=== PATIENT | female | born 1995 | race Caucasian/White ===

== ENCOUNTER 2021-05-30 09:10 | Observation (INO) ==
[2021-05-30] MEDS ORDERED: SODIUM CHLORIDE 0.9% 1000ML 2,000 ML IV ONE (10:05)
[2021-05-30] MEDS ORDERED: KETOROLAC TROMETHAMINE 15 MG/ML VIAL IV ONE (10:05)
--- NOTE | 2021-05-30 10:05 | Emergency Department Note ---
Impression & Plan Acute appendicitis, Abdominal pain ED Provider Note NAME: PINKY PLEITEZ AGE: 25 SEX: F : 1995 ARRIVES VIA: Walk-In INFORMANT: Patient ED PROVIDER(S): Angel Perez DO CHIEF COMPLAINT: Right lower quadrant abdominal pain HPI: Patient is a 25-year-old female who presents to the ER for right lower quadrant abdominal pain. She identifies as a he. Is on testosterone. Has not had a menstrual period for several years. Denies any dysuria, urgency, or frequ ency. Pain is locally in the right lower quadrant worse with palpation. Admits to nausea. Did have one episode of vomiting. 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 No cough or runny nose or loss of taste or smell. No other exacerbating or remitting factors. No vaginal bleeding or vaginal discharge. ROS: See above HPI for pertinent positives & negatives. A total of 10 systems reviewed and were otherwise negative. PAST MEDICAL HISTORY:See Below PAST SURGICAL HISTORY:See Below FAMILY HISTORY:See Below SOCIAL HISTORY:See Below HOME MEDICATIONS:See Below ALLERGIES:See Below VITALS:See Below PHYSICAL EXAMINATION: GENERAL: Sitting up in bed, alert, well appearing, well nourished, no distress, non-toxic EYE EXAM: normal conjunctiva. OROPHARYNX: no exudate, no erythema, lips, buccal mucosa, and tongue normal and mucous membranes are moist NECK: supple, no nuchal rigidity, no adenopathy, non-tender LUNGS: Clear to auscultation. Normal chest wall mechanics HEART: no murmurs, S1 normal and S2 normal ABDOMEN: abdomen soft, tender in right lower quadrant, normo-active bowel sounds, no masses, no rebound or guarding. UPPER EXTREMITIES: upper extremities are grossly normal. LOWER EXTREMITIES: No pitting edema. NEURO EXAM: Normal sensorium, cranial nerves II-XII grossly intact, normal speech, no gross weakness of arms, no gross weakness of legs. MEDICAL DECISION MAKING: Patient is a 25-year-old female who presents the ER for right lower quadrant abdominal pain. Patient is acutely tender on palpation. IV was established blood work was obtained. Labs show leukocytosis 23,000. No significant anemia. BMP with a creatinine 1.4. LFTs bilirubin and lipase was unremarkable. UA was clean. was negative. Covid was negative. CT abdomen pelvis confirms acute appendicitis. Patient was given cefoxitin IV fluids and IV Toradol. Patient was updated bedside. Discussed with Jane mitchell and patient was admitted and taken to the OR for acute appendicitis. Triage Nursing notes reviewed. Limited review of prior medical records performed Vital Signs: reviewed and remarkable for Tachy Differential diagnosis: Differential diagnoses includes but is not limited to gastritis, peptic ulcer disease, GERD, gallbladder disease, pancreatitis, small bowel obstruction, acute coronary syndrome, pericarditis, ischemic bowel, irritable bowel disease, irritable bowel syndrome, appendicitis, diverticulitis, malignancy, hernia, urinary tract infection, torsion, /ectopic (if female), perforation, trauma, infectious. ER treatment provided: See below Diagnostics interpreted by me: ECG: none Cardiac Monitoring: An order was placed for continuous cardiac monitoring. The monitor shows a rate of 92 with sinus rhythm. Laboratory studies: As stated above and show below. Imaging studies: CT abdomen pelvis as discussed above Consultation(s): Discussed with general surgery as stated above Procedures: none Critical Care: None Past Med/Surg History Medical History (Updated 05/30/21 @ 16:17 by Angel Perez DO) Diabetes mellitus Hypertension Social History Smoking Status: Never smoker Tobacco Type: Smokeless Tobacco (Dip or Chew) Do You Dip or Chew Tobacco: No; Hx Alcohol Use: Yes Hx Substance Use: No Beliefs That Will Affect Care: None Current Living Situation: Significant Other Feels Safe at Home: Yes Gender Identity: Male Allergies Allergies Allergy/AdvReac Type Severity Reaction Status Date / Time latex Allergy Mild . Verified 05/30/21 10:21 Home Meds Home Medications Medication Instructions Recorded Confirmed amlodipine 5 mg tablet 5 mg PO QAM 05/30/21 05/30/21 diphenhydramine HCl 25 mg tablet 25 mg PO ONCE 05/30/21 05/30/21 (Benadryl Allergy) insulin aspar prt-insulin aspart 0 unit SUBCUT BID 05/30/21 05/30/21 100 unit/mL (70-30) subcutaneous soln (Novolog Mix 70-30 U-100 Insuln) insulin aspart U-100 100 unit/mL 1 sliding scale dose SUBCUT 05/30/21 05/30/21 subcutaneous cartridge (Novolog USEASDIRECTD PenFill U-100 Insulin aspart) lisinopril 20 mg tablet 20 mg PO QAM 05/30/21 05/30/21 rosuvastatin 10 mg tablet 10 mg PO QAM 05/30/21 05/30/21 Results & Data (ED) Vital Signs Vital Signs - 24 hr 05/30/21 09:29 05/30/21 10:05 05/30/21 12:00 Temperature 37.3 C Temperature Source Oral Pulse Rate 135 H Pulse Rate [Apical] Pulse Rate [Right Finger] 116 H Pulse Rhythm Regular Pulse Rhythm [Apical] Pulse Rhythm [Right Finger] Regular Pulse Strength Normal Pulse Strength [Right Finger] Normal Respiratory Rate 20 16 20 Respiratory Effort / Characteristics Non-Labored Spontaneous Non-Labored Spontaneous Non-Labored Spontaneous Respiratory Depth Normal Normal Normal Respiratory Pattern Regular Regular Regular Blood Pressure 140/84 Blood Pressure [Left Arm] 159/93 H 146/82 H Blood Pressure Mean 102 Blood Pressure Mean [Left Arm] 115 103 Blood Pressure Position [Left Arm] Sitting Sitting Pulse Oximetry 99 99 96 Oxygen Delivery Method Room Air Room Air Room Air Oxygen Flow Rate Sepsis Recent Fever Within 48 Hours No Sepsis New/Unexplained Change in Mental Status N/A Sepsis Action Taken by Nursing No Action Required 05/30/21 13:00 05/30/21 13:33 05/30/21 14:17 Temperature 37.7 C H Temperature Source Oral Pulse Rate Pulse Rate [Apical] Pulse Rate [Right Finger] 116 H 114 H 118 H Pulse Rhythm Pulse Rhythm [Apical] Pulse Rhythm [Right Finger] Regular Regular Pulse Strength Pulse Strength [Right Finger] Normal Normal Respiratory Rate 20 20 20 Respiratory Effort / Characteristics Non-Labored Spontaneous Non-Labored Spontaneous Respiratory Depth Normal Normal Respiratory Pattern Regular Regular Blood Pressure Blood Pressure [Left Arm] 139/87 139/87 157/116 H Blood Pressure Mean Blood Pressure Mean [Left Arm] 104 104 129 Blood Pressure Position [Left Arm] Sitting Sitting Pulse Oximetry 99 100 98 Oxygen Delivery Method Room Air Room Air Room Air Oxygen Flow Rate Sepsis Recent Fever Within 48 Hours Sepsis New/Unexplained Change in Mental Status Sepsis Action Taken by Nursing 05/30/21 15:14 05/30/21 15:20 05/30/21 15:30 Temperature 36.2 C L Temperature Source Temporal Artery Scan Pulse Rate Pulse Rate [Apical] 85 79 97 H Pulse Rate [Right Finger] Pulse Rhythm Pulse Rhythm [Apical] Regular Regular Regular Pulse Rhythm [Right Finger] Pulse Strength Pulse Strength [Right Finger] Respiratory Rate 16 12 21 Respiratory Effort / Characteristics Non-Labored Spontaneous Non-Labored Spontaneous Non-Labored Spontaneous Respiratory Depth Normal Normal Normal Respiratory Pattern Regular Regular Regular Blood Pressure Blood Pressure [Left Arm] 101/52 L 83/60 L 103/59 L Blood Pressure Mean Blood Pressure Mean [Left Arm] 68 67 73 Blood Pressure Position [Left Arm] Lying Lying Lying Pulse Oximetry 100 100 100 Oxygen Delivery Method Oxymask Oxymask Oxymask Oxygen Flow Rate 7 7 7 Sepsis Recent Fever Within 48 Hours Sepsis New/Unexplained Change in Mental Status Sepsis Action Taken by Nursing 05/30/21 15:40 05/30/21 15:50 05/30/21 16:00 Temperature Temperature Source Pulse Rate Pulse Rate [Apical] 96 H 96 H 97 H Pulse Rate [Right Finger] Pulse Rhythm Pulse Rhythm [Apical] Regular Regular Regular Pulse Rhythm [Right Finger] Pulse Strength Pulse Strength [Right Finger] Respiratory Rate 14 18 15 Respiratory Effort / Characteristics Non-Labored Spontaneous Non-Labored Spontaneous Non-Labored Spontaneous Respiratory Depth Normal Normal Normal Respiratory Pattern Regular Regular Regular Blood Pressure Blood Pressure [Left Arm] 132/84 131/85 137/85 Blood Pressure Mean Blood Pressure Mean [Left Arm] 100 100 102 Blood Pressure Position [Left Arm] Lying Lying Lying Pulse Oximetry 99 99 99 Oxygen Delivery Method Room Air Room Air Room Air Oxygen Flow Rate Sepsis Recent Fever Within 48 Hours Sepsis New/Unexplained Change in Mental Status Sepsis Action Taken by Nursing 05/30/21 16:10 Temperature Temperature Source Pulse Rate Pulse Rate [Apical] 96 H Pulse Rate [Right Finger] Pulse Rhythm Pulse Rhythm [Apical] Regular Pulse Rhythm [Right Finger] Pulse Strength Pulse Strength [Right Finger] Respiratory Rate 14 Respiratory Effort / Characteristics Non-Labored Spontaneous Respiratory Depth Normal Respiratory Pattern Regular Blood Pressure Blood Pressure [Left Arm] 135/86 Blood Pressure Mean Blood Pressure Mean [Left Arm] 102 Blood Pressure Position [Left Arm] Lying Pulse Oximetry 99 Oxygen Delivery Method Room Air Oxygen Flow Rate Sepsis Recent Fever Within 48 Hours Sepsis New/Unexplained Change in Mental Status Sepsis Action Taken by Nursing Laboratory Data Result diagrams: 05/30/21 10:00 05/30/21 10:00 Lab Results 05/30/21 05/30/21 05/30/21 Range/Units 10:00 10:00 10:20 WBC 23.88 H (4.8-10.8) K/uL RBC 4.67 (4.2-5.4) M/uL Hgb 14.6 (12.0-16.0) g/dL Hct 40.6 (37-47) % MCV 86.9 (80-100) fL MCH 31.3 (25-34) pg MCHC 36.0 (32-36) g/dL RDW Std Deviation 38.5 (36.4-46.3) fL RDW Coeff of Bon[place] 12.1 (11.5-14.5) % Plt Count 357 (130-400) K/uL MPV 9.8 (7.4-10.4) fL Immature Gran % (Auto) 0.3 % Neut % (Auto) 85.2 % Lymph % (Auto) 7.4 % [place] % (Auto) 6.7 % Eos % (Auto) 0.3 % Baso % (Auto) 0.1 % Neut # (Auto) 20.34 H (1.4-6.5) K/uL Lymph # (Auto) 1.76 (1.2-3.4) K/uL [place] # (Auto) 1.61 H (0.11-0.59) K/uL Eos # (Auto) 0.08 (0-0.5) K/uL Baso # (Auto) 0.03 (0-0.2) K/uL Immature Gran # (Auto) 0.06 H (0.00-0.02) K/uL Sodium 138 (136-145) mmol/L Potassium 3.8 (3.5-5.1) mmol/L Chloride 105 (98-107) mmol/L Carbon Dioxide 28 (21-32) mmol/L Anion Gap 5.0 (3-11) BUN 19 H (7-18) mg/dl Creatinine 1.43 H (0.6-1.2) mg/dl Est Cr Clr Drug Dosing 47.2 ml/min Est GFR ( Amer) 58.4 ml/min Est GFR (Non-Af Amer) 50.4 ml/min BUN/Creatinine Ratio 13.1 (10-20) Glucose 65 L (70-99) mg/dl POC Glucose (70-99) mg/dl Calcium 9.8 (8.5-10.1) mg/dl Total Bilirubin 0.6 (0.2-1) mg/dl AST 15 (15-37) U/L ALT 23 (12-78) U/L Alkaline Phosphatase 95 (45-117) U/L Total Protein 8.0 (6.4-8.2) gm/dl Albumin 4.1 (3.4-5.0) gm/dl Globulin 3.9 (2.5-4.0) gm/dl Albumin/Globulin Ratio 1.1 (0.9-2) Lipase 66 L (73-393) U/L Urine Color Yellow Urine Appearance Clear (Clear) Urine pH 6.5 (4.5-7.5) Ur Specific [place] 1.012 (1.000-1.030) Urine Protein 3+ H (Negative) Urine Glucose (UA) Trace H (Negative) Urine Ketones Negative (Negative) Urine Blood Negative (Negative) Urine Nitrite Negative (Negative) Urine Bilirubin Negative (Negative) Urine Urobilinogen Negative (Negative) Ur Leukocyte Esterase Negative (Negative) Urine WBC (Auto) 1-5 (0-5) /hpf Urine RBC (Auto) 0-4 (0-4) /hpf U Hyaline Cast (Auto) 1-5 (0-5) /lpf U Epithel Cells (Auto) 10-20 H (0-5) /lpf Urine Bacteria (Auto) Negative (Negative) POC Ur Test (NEG) COVID-19 Eval Order SARS-CoV-2 (PCR) (Negative) 05/30/21 05/30/21 05/30/21 Range/Units 10:20 12:20 12:20 WBC (4.8-10.8) K/uL RBC (4.2-5.4) M/uL Hgb (12.0-16.0) g/dL Hct (37-47) % MCV (80-100) fL MCH (25-34) pg MCHC (32-36) g/dL RDW Std Deviation (36.4-46.3) fL RDW Coeff of Boni (11.5-14.5) % Plt Count (130-400) K/uL MPV (7.4-10.4) fL Immature Gran % (Auto) % Neut % (Auto) % Lymph % (Auto) % [place] % (Auto) % Eos % (Auto) % Baso % (Auto) % Neut # (Auto) (1.4-6.5) K/uL Lymph # (Auto) (1.2-3.4) K/uL [place] # (Auto) (0.11-0.59) K/uL Eos # (Auto) (0-0.5) K/uL Baso # (Auto) (0-0.2) K/uL Immature Gran # (Auto) (0.00-0.02) K/uL Sodium (136-145) mmol/L Potassium (3.5-5.1) mmol/L Chloride (98-107) mmol/L Carbon Dioxide (21-32) mmol/L Anion Gap (3-11) BUN (7-18) mg/dl Creatinine (0.6-1.2) mg/dl Est Cr Clr Drug Dosing ml/min Est GFR ( Amer) ml/min Est GFR (Non-Af Amer) ml/min BUN/Creatinine Ratio (10-20) Glucose (70-99) mg/dl POC Glucose (70-99) mg/dl Calcium (8.5-10.1) mg/dl Total Bilirubin (0.2-1) mg/dl AST (15-37) U/L ALT (12-78) U/L Alkaline Phosphatase (45-117) U/L Total Protein (6.4-8.2) gm/dl Albumin (3.4-5.0) gm/dl Globulin (2.5-4.0) gm/dl Albumin/Globulin Ratio (0.9-2) Lipase (73-393) U/L Urine Color Urine Appearance (Clear) Urine pH (4.5-7.5) Ur Specific [place] (1.000-1.030) Urine Protein (Negative) Urine Glucose (UA) (Negative) Urine Ketones (Negative) Urine Blood (Negative) Urine Nitrite (Negative) Urine Bilirubin (Negative) Urine Urobilinogen (Negative) Ur Leukocyte Esterase (Negative) Urine WBC (Auto) (0-5) /hpf Urine RBC (Auto) (0-4) /hpf U Hyaline Cast (Auto) (0-5) /lpf U Epithel Cells (Auto) (0-5) /lpf Urine Bacteria (Auto) (Negative) POC Ur Test NEG (NEG) COVID-19 Eval Order Covid19 at [facility] SARS-CoV-2 (PCR) NEGATIVE (Negative) 05/30/21 05/30/21 Range/Units 13:38 15:19 WBC (4.8-10.8) K/uL RBC (4.2-5.4) M/uL Hgb (12.0-16.0) g/dL Hct (37-47) % MCV (80-100) fL MCH (25-34) pg MCHC (32-36) g/dL RDW Std Deviation (36.4-46.3) fL RDW Coeff of Boni (11.5-14.5) % Plt Count (130-400) K/uL MPV (7.4-10.4) fL Immature Gran % (Auto) % Neut % (Auto) % Lymph % (Auto) % [place] % (Auto) % Eos % (Auto) % Baso % (Auto) % Neut # (Auto) (1.4-6.5) K/uL Lymph # (Auto) (1.2-3.4) K/uL [place] # (Auto) (0.11-0.59) K/uL Eos # (Auto) (0-0.5) K/uL Baso # (Auto) (0-0.2) K/uL Immature Gran # (Auto) (0.00-0.02) K/uL Sodium (136-145) mmol/L Potassium (3.5-5.1) mmol/L Chloride (98-107) mmol/L Carbon Dioxide (21-32) mmol/L Anion Gap (3-11) BUN (7-18) mg/dl Creatinine (0.6-1.2) mg/dl Est Cr Clr Drug Dosing ml/min Est GFR ( Amer) ml/min Est GFR (Non-Af Amer) ml/min BUN/Creatinine Ratio (10-20) Glucose (70-99) mg/dl POC Glucose 81 101 H (70-99) mg/dl Calcium (8.5-10.1) mg/dl Total Bilirubin (0.2-1) mg/dl AST (15-37) U/L ALT (12-78) U/L Alkaline Phosphatase (45-117) U/L Total Protein (6.4-8.2) gm/dl Albumin (3.4-5.0) gm/dl Globulin (2.5-4.0) gm/dl Albumin/Globulin Ratio (0.9-2) Lipase (73-393) U/L Urine Color Urine Appearance (Clear) Urine pH (4.5-7.5) Ur Specific [place] (1.000-1.030) Urine Protein (Negative) Urine Glucose (UA) (Negative) Urine Ketones (Negative) Urine Blood (Negative) Urine Nitrite (Negative) Urine Bilirubin (Negative) Urine Urobilinogen (Negative) Ur Leukocyte Esterase (Negative) Urine WBC (Auto) (0-5) /hpf Urine RBC (Auto) (0-4) /hpf U Hyaline Cast (Auto) (0-5) /lpf U Epithel Cells (Auto) (0-5) /lpf Urine Bacteria (Auto) (Negative) POC Ur Test (NEG) COVID-19 Eval Order SARS-CoV-2 (PCR) (Negative) Administered Medications Fentanyl Citrate (Fentanyl Citrate 100 Mcg/2 Ml Vial) 25 mcg IV Q5M PRN PRN Reason: PACU Use Only-Pain Stop: 05/30/21 21:48 Last Admin: 05/30/21 15:48 Dose: 25 mcg Documented by: [id number] Admin: 05/30/21 15:34 Dose: 25 mcg Documented by: [id number] Ondansetron HCl (Ondansetron Inj 2 Mg/Ml 2 Ml Vial) 4 mg IV ONCE PRN PRN Reason: PACU Use Only-Nausea/Vomiting Stop: 05/30/21 21:48 Last Admin: 05/30/21 15:34 Dose: 4 mg Documented by: [id number] Discontinued Medications Bacitracin (Bacitracin Oint 15 Gm Tube) Confirm Administered Dose 45 appln .ROUTE .STK-MED ONE Stop: 05/30/21 12:23 Last Admin: 05/30/21 14:53 Dose: 45 appln Documented by: [id number] Bupivacaine HCl (Bupivacaine 0.5 % 5 Mg/1 Ml Mpf 30ml Vial) Confirm Administered Dose 30 ml .ROUTE .STK-MED ONE Stop: 05/30/21 12:23 Last Admin: 05/30/21 14:55 Dose: 8 ml Documented by: [id number] Sodium Chloride (Nss 1000ml) 2,000 mls @ 999 mls/hr IV .Q2H1M ONE Stop: 05/30/21 12:05 Last Admin: 05/30/21 10:27 Dose: 999 mls/hr Documented by: [id number] Cefoxitin Sodium (Mefoxin) 2,000 mg in 60 mls @ 100 mls/hr IV NOW STA Stop: 05/30/21 12:11 Last Admin: 05/30/21 12:15 Dose: 100 mls/hr Documented by: [id number] Ioversol (Optiray 320 100ml) 94 ml IV ONCE ONE Stop: 05/30/21 10:54 Last Admin: 05/30/21 10:53 Dose: 94 ml Documented by: [id number] Ketorolac Tromethamine (Ketorolac Tromethamine 15 Mg/Ml Vial) 10 mg IV NOW ONE Stop: 05/30/21 10:06 Last Admin: 05/30/21 10:27 Dose: 10 mg Documented by: [id number] Lidocaine HCl (Lidocaine 1% Local 20 Ml Vial) Confirm Administered Dose 20 ml .ROUTE [email or web address]Up ONE Stop: 05/30/21 12:24 Last Admin: 05/30/21 14:56 Dose: 8 ml Documented by: [id number] Imaging Data Radiologist's Impression: Abdomen/Pelvis CT 05/30/21 10:05 CT SCAN OF THE ABDOMEN AND PELVIS WITH IV CONTRAST CLINICAL HISTORY: Right lower quadrant abdominal pain. COMPARISON STUDY: No priors. TECHNIQUE: Following the IV administration of 94 cc of Optiray 320, CT scan of the abdomen and pelvis is performed from the lung bases to the proximal femora. Images are reviewed in the axial, sagittal, and coronal planes. IV contrast was administered without complication. A dose lowering technique was utilized a dhering to the principles of ALARA. CT DOSE: 268.37 mGycm FINDINGS: Lung bases: The heart is normal in size and without pericardial effusion. The lung bases are clear. Liver: The contrast-enhanced liver is normal in size, contour, and attenuation. There is no intrahepatic biliary ductal dilatation. The hepatic veins and portal veins are patent. Gallbladder: Unremarkable. Spleen: Normal in size and attenuation. Pancreas: Unremarkable. Adrenal glands: Unremarkable. Kidneys: The contrast enhanced kidneys are normal in size and without hydronephrosis. The kidneys enhance symmetrically. Abdominal vasculature: The abdominal aorta is normal in course and caliber. Bowel: There is mild colonic fecal retention. No bowel obstruction is seen. Mild wall thickening suggested throughout the colon. The appendix is mildly dilated and fluid-filled, measuring up to 8 mm in diameter. The appendiceal wall is thickened and hyperemic and there is faint periappendiceal inflammation. This is best seen on image #[id number]. Findings are consistent with acute appendicitis. There is trace surrounding fluid. No organized fluid collection is seen to indicate abscess. Peritoneum: There is no intraperitoneal free air or abdominal ascites. Lymphadenopathy: None. Pelvic viscera: The bladder is decompressed and grossly unremarkable. The uterus and adnexa are normal as visualized noting bilateral ovarian follicles. An involuting follicle is suggested on the left. Skeletal structures: No lytic or blastic lesions are seen. IMPRESSION: 1. Findings are consistent with acute appendicitis. 2. There is no evidence of abscess or perforation. 3. There is mild diffuse colonic wall thickening. Correlate clinically for evidence of a nonspecific colitis. ACT 112: Negative or not required by law. Electronically signed by: Clyde Avalos M.D. 05/30/2021 11:20 AM Discharge Plan Visit Data Chief Complaint: Abdominal Pain Stated Complaint: ADOMINAL PAIN, VOMITTING ED Provider: Angel Perez Discharge Problem: Acute appendicitis, Abdominal pain Discharge Instructions Interventions: ED Discharge Assessment Last Done: 05/30/21 13:34
[2021-05-30 10:16] LABS: Hematocrit (blood only) 40.6 % (37-47); Hemoglobin 14.6 g/dL (12.0-16.0); Mean Corpuscular Hemoglobin 31.3 pg (25-34); Mean Corpuscular Volume 86.9 fL (80-100); Mean Platelet Volume 9.8 fL (7.4-10.4); Platelet Count 357 K/uL (130-400); RDW Coefficient of Variation 12.1 % (11.5-14.5); RDW Standard Deviation 38.5 fL (36.4-46.3); Red Blood Count 4.67 M/uL (4.2-5.4); White Blood Count 23.88 K/uL (4.8-10.8)
[2021-05-30 10:39] LABS: Albumin Globulin Ratio 1.1 (0.9-2); Albumin Level 4.1 gm/dl (3.4-5.0); BUN Creatinine Ratio 13.1 (10-20); Bilirubin,Total 0.6 mg/dl (0.2-1); Calcium 9.8 mg/dl (8.5-10.1); Creatinine Clr Calc Pharmacy 47.2 ml/min; Est GFR (African American) 58.4 ml/min; Est GFR (Non-African American) 50.4 ml/min; Globulin 3.9 gm/dl (2.5-4.0); Potassium 3.8 mmol/L (3.5-5.1)
[2021-05-30 10:44] LABS: Basophils # (auto) 0.03 K/uL (0-0.2); Basophils % (auto) 0.1 %; Eosinophils # (auto) 0.08 K/uL (0-0.5); Eosinophils % (auto) 0.3 %; Immature Granulocytes # (auto) 0.06 K/uL (0.00-0.02); Immature Granulocytes % (auto) 0.3 %; Lymphocytes # (auto) 1.76 K/uL (1.2-3.4); Lymphocytes % (auto) 7.4 %; Monocytes # (auto) 1.61 K/uL (0.11-0.59); Monocytes % (auto) 6.7 %; Neutrophils # (auto) 20.34 K/uL (1.4-6.5); Neutrophils % (auto) 85.2 %
[2021-05-30 10:46] LABS: Appearance Urine Clear (Clear); Bacteria Urine Automated Negative (Negative); Bilirubin Urine Negative (Negative); Blood Urine Negative (Negative); Color Urine Yellow; Glucose Urine UA Trace (Negative); Ketones Urine Negative (Negative); Leukocyte Esterase Urine Negative (Negative); Nitrite Urine Negative (Negative); Protein Urine 3+ (Negative); RBC Urine Automated 0-4 /hpf (0-4); Specific Gravity Urine 1.012 (1.000-1.030); Urobilinogen Urine Negative (Negative); pH Urine 6.5 (4.5-7.5)
[2021-05-30] MEDS ORDERED: OPTIRAY 320 100ml IV ONE (10:53)
--- NOTE | 2021-05-30 11:22 | CT Scan Report ---
CT SCAN OF THE ABDOMEN AND PELVIS WITH IV CONTRAST CLINICAL HISTORY: Right lower quadrant abdominal pain. COMPARISON STUDY: No priors. TECHNIQUE: Following the IV administration of 94 cc of Optiray 320, CT scan of the abdomen and pelvi s is performed from the lung bases to the proximal femora. Images are reviewed in the axial, sagittal , and coronal planes. IV contrast was administered without complication. A dose lowering technique wa s utilized adhering to the principles of ALARA. CT DOSE: 268.37 mGycm FINDINGS: Lung bases: The heart is normal in size and without pericardial effusion. The lung bases are clear. Liver: The contrast-enhanced liver is normal in size, contour, and attenuation. There is no intrahepa tic biliary ductal dilatation. The hepatic veins and portal veins are patent. Gallbladder: Unremarkable. Spleen: Normal in size and attenuation. Pancreas: Unremarkable. Adrenal glands: Unremarkable. Kidneys: The contrast enhanced kidneys are normal in size and without hydronephrosis. The kidneys enh ance symmetrically. Abdominal vasculature: The abdominal aorta is normal in course and caliber. Bowel: There is mild colonic fecal retention. No bowel obstruction is seen. Mild wall thickening sugg ested throughout the colon. The appendix is mildly dilated and fluid-filled, measuring up to 8 mm in diameter. The appendiceal wall is thickened and hyperemic and there is faint periappendiceal inflamm ation. This is best seen on image #[id number]. Findings are consistent with acute appendicitis. There is tra ce surrounding fluid. No organized fluid collection is seen to indicate abscess. Peritoneum: There is no intraperitoneal free air or abdominal ascites. Lymphadenopathy: None. Pelvic viscera: The bladder is decompressed and grossly unremarkable. The uterus and adnexa are shayla l as visualized noting bilateral ovarian follicles. An involuting follicle is suggested on the left. Skeletal structures: No lytic or blastic lesions are seen. IMPRESSION: 1. Findings are consistent with acute appendicitis. 2. There is no evidence of abscess or perforation. 3. There is mild diffuse colonic wall thickening. Correlate clinically for evidence of a nonspecific colitis. ACT 112: Negative or not required by law. Electronically signed by: Clyde Avalos M.D. 05/30/2021 11:20 AM
[2021-05-30] MEDS ORDERED: cefOXitin 2,000 MG/60 ML BAG IV STA (11:36)
[2021-05-30] MEDS ORDERED: BUPIVACAINE 0.5 % 5 MG/1 ML MPF 30ML VIAL ONE (12:22)
[2021-05-30] MEDS ORDERED: BACITRACIN OINT 15 GM TUBE ONE (12:22)
[2021-05-30] MEDS ORDERED: LIDOCAINE 1% LOCAL 20 ML VIAL ONE (12:23)
[2021-05-30] MEDS ORDERED: ROCURONIUM BROMIDE 10 MG/ML 5 ML VIAL IV ONE (12:53)
[2021-05-30] MEDS ORDERED: DEXAMETHASONE SOD INJ 4 MG/ML VIAL ONE (12:53)
[2021-05-30] MEDS ORDERED: MIDAZOLAM HCL 1 MG/ML 2ML VIAL ONE (12:53)
[2021-05-30] MEDS ORDERED: ONDANSETRON INJ 2 MG/ML 2 ML VIAL ONE (12:53)
[2021-05-30] MEDS ORDERED: fentaNYL citrate 100 MCG/2 ML VIAL ONE (12:53)
[2021-05-30] MEDS ORDERED: KETOROLAC 30 MG/ML VIAL ONE (12:53)
[2021-05-30] MEDS ORDERED: LIDOCAINE 2% 2 ML VIAL/AMP(20MG/ML) INFIL ONE (12:53)
[2021-05-30] MEDS ORDERED: PROPOFOL IV EMULSION 10 MG/ML 20 ML VIAL IV ONE (12:53)
[2021-05-30] MEDS ORDERED: NEOSTIGMINE METHYLSULFATE 1 MG/ML 10ML VIAL ONE (12:53)
[2021-05-30] MEDS ORDERED: LARYING-O-JET KIT (LTA) ONE (12:53)
[2021-05-30] MEDS ORDERED: GLYCOPYRROLATE 0.2 MG/ML VIAL ONE (12:53)
--- NOTE | 2021-05-30 13:33 | Surgery Consultation ---
Date of Consultation May 30, 2021 Assessment & Plan (1) Acute appendicitis: Present on Admission?: Yes pt is a 25 year-old male who presents to ER with one day history RLQ pain, CT scan finding acute appendicitis, IMP: acute appendicitis, plan, I recommend to do laparoscopic appendectomy, possible open, D/W benefits, risks and alternatives of the surgery, the risks - infection, bleeding, injury other organs, abscess, bowel obstruction, scar, pain, pt understood, he agrees with surgery, I answered all questions, pre-op antibiotic Plan History of Present Illness Reason for Consultation: appendicitis Requesting Physician: Angel Perez MD Attending Physician: Eddi Velez MD History of Present Illness CHIEF COMPLAINT: Right lower quadrant abdominal pain HPI: Patient is a 25-year-old female who presents the ER for right lower quadrant abdominal pain. She identifies as a he. Is on testosterone. Has not had a menstrual period for several years. Denies any dysuria urgency or frequency. Pain is locally in the right lower quadrant worse with palpation. Admits to nausea. Did have one episode of vomiting. 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 No cough or runny nose or loss of taste or smell. No other exacerbating or remitting factors. No vaginal bleeding or vaginal discharge. I ( Eddi Velez MD ) got a call for consult appendicitis, I reviewed pt's H/P, labs, CT scan with pt, ROS: See above HPI for pertinent positives & negatives. A total of 10 systems reviewed and were otherwise negative. PAST MEDICAL HISTORY: See Below PAST SURGICAL HISTORY: See Below FAMILY HISTORY: See Below SOCIAL HISTORY: See Below HOME MEDICATIONS: See Below ALLERGIES: See Below Allergies Allergy/AdvReac Type Severity Reaction Status Date / Time latex Allergy Mild . Verified 05/30/21 10:21 Home Medications Medication Instructions Recorded Confirmed Type amlodipine 5 mg tablet 5 mg PO QAM 05/30/21 05/30/21 History diphenhydramine HCl 25 mg tablet 25 mg PO ONCE 05/30/21 05/30/21 History (Benadryl Allergy) insulin aspar prt-insulin aspart 0 unit SUBCUT BID 05/30/21 05/30/21 History 100 unit/mL (70-30) subcutaneous soln (Novolog Mix 70-30 U-100 Insuln) insulin aspart U-100 100 unit/mL 1 sliding scale dose SUBCUT 05/30/21 05/30/21 History subcutaneous cartridge (Novolog USEASDIRECTD PenFill U-100 Insulin aspart) lisinopril 20 mg tablet 20 mg PO QAM 05/30/21 05/30/21 History rosuvastatin 10 mg tablet 10 mg PO QAM 05/30/21 05/30/21 History Patient History Social History Smoking Status: Never smoker Tobacco Type: Smokeless Tobacco (Dip or Chew) Feels Safe at Home: Yes Gender Identity: Male Physical Exam Constitutional: WD/WN, vitals as above Eyes: PERRL, conjunctivae normal, anicteric sclerae Neck: trachea midline, no thyromegaly Respiratory: normal respiratory effort, lungs clear to auscultation Cardiovascular: RRR, no murmur, no edema Gastrointestinal (Abdomen): soft, tendernesss at RLQ, no rebound pain, no distend, BS + Musculoskeletal: no cyanosis or clubbing, extremities motor strength 5/5 Neurologic: patellar DTR's 2+ bilat, sensation intact Psychiatric: A+Ox3, euthymic affect Results & Data ([facility]) Vital Signs (Past 12 Hours) Vital Signs Temp Pulse Resp BP BP Pulse Ox 05/30/21 10:05 16 159/93 H 99 05/30/21 09:29 37.3 C 135 H 20 140/84 99 Laboratory Results Abnormal lab results 05/30/21 05/30/21 05/30/21 Range/Units 10:00 10:00 10:20 WBC 23.88 H (4.8-10.8) K/uL Neut # (Auto) 20.34 H (1.4-6.5) K/uL Bibb # (Auto) 1.61 H (0.11-0.59) K/uL Immature Gran # (Auto) 0.06 H (0.00-0.02) K/uL BUN 19 H (7-18) mg/dl Creatinine 1.43 H (0.6-1.2) mg/dl Glucose 65 L (70-99) mg/dl Lipase 66 L (73-393) U/L Urine Protein 3+ H (Negative) Urine Glucose (UA) Trace H (Negative) U Epithel Cells (Auto) 10-20 H (0-5) /lpf Diagnostic Findings CT SCAN OF THE ABDOMEN AND PELVIS WITH IV CONTRAST CLINICAL HISTORY: Right lower quadrant abdominal pain. COMPARISON STUDY: No priors. TECHNIQUE: Following the IV administration of 94 cc of Optiray 320, CT scan of the abdomen and pelvis is performed from the lung bases to the proximal femora. Images are reviewed in the axial, sagittal, and coronal planes. IV contrast was administered without complication. A dose lowering technique was utilized adhering to the principles of ALARA. CT DOSE: 268.37 mGycm FINDINGS: Lung bases: The heart is normal in size and without pericardial effusion. The lung bases are clear. Liver: The contrast-enhanced liver is normal in size, contour, and attenuation. There is no intrahepatic biliary ductal dilatation. The hepatic veins and portal veins are patent. Gallbladder: Unremarkable. Spleen: Normal in size and attenuation. Pancreas: Unremarkable. Adrenal glands: Unremarkable. Kidneys: The contrast enhanced kidneys are normal in size and without hydronephrosis. The kidneys enhance symmetrically. Abdominal vasculature: The abdominal aorta is normal in course and caliber. Bowel: There is mild colonic fecal retention. No bowel obstruction is seen. Mild wall thickening suggested throughout the colon. The appendix is mildly dilated and fluid-filled, measuring up to 8 mm in diameter. The appendiceal wall is thickened and hyperemic and there is faint periappendiceal inflammation. This is best seen on image #[id number]. Findings are consistent with acute appendicitis. There is trace surrounding fluid. No organized fluid collection is seen to indicate abscess. Peritoneum: There is no intraperitoneal free air or abdominal ascites. Lymphadenopathy: None. Pelvic viscera: The bladder is decompressed and grossly unremarkable. The uterus and adnexa are normal as visualized noting bilateral ovarian follicles. An involuting follicle is suggested on the left. Skeletal structures: No lytic or blastic lesions are seen. IMPRESSION: 1. Findings are consistent with acute appendicitis. 2. There is no evidence of abscess or perforation. 3. There is mild diffuse colonic wall thickening. Correlate clinically for evidence of a nonspecific colitis.
--- NOTE | 2021-05-30 13:44 | History & Physical Bridge Note ---
Date of Service May 30, 2021 History & Physical Bridge Note I have examined the patient, reviewed the History & Physical and in the interval since the performance of the History & Physical I have noted the following changes of clinical significance: no changes noted
[2021-05-30] MEDS ORDERED: ONDANSETRON INJ 2 MG/ML 2 ML VIAL IV PRN ×2 (13:48→15:06)
[2021-05-30] MEDS ORDERED: HYDROmorphone INJ 1 MG/ML SYRINGE IV PRN (13:48)
[2021-05-30] MEDS ORDERED: ePHEDrine sulfate 50 MG/ML AMP IV PRN (13:48)
[2021-05-30] MEDS ORDERED: ATROPINE SULFATE 0.1 MG/ML 10ML SYR IV PRN (13:48)
--- NOTE | 2021-05-30 13:50 | Anesthesiology Consultation ---
Date of Service May 30, 2021 Assessment & Plan (1) Encounter for pre-operative examination: Chart Review Chart Review: Acceptable Risk for Surgery and Patient NOT seen in Pre Admission Testing Consults Requested none History Surgery Operation Date: 05/30/21 08:15 Proposed Procedures p Laparoscopic Appendectomy - Eddi Velez MD Height/Weight Height: 5 ft 2 in Weight: 53.8 kg Allergies Allergy/AdvReac Type Severity Reaction Status Date / Time latex Allergy Mild . Verified 05/30/21 10:21 Medications Home Medications Medication Instructions Recorded Confirmed Last Taken amlodipine 5 mg tablet 5 mg PO QAM 05/30/21 05/30/21 05/30/21 diphenhydramine HCl 25 mg tablet 25 mg PO ONCE 05/30/21 05/30/21 05/29/21 (Benadryl Allergy) 25 mg insulin aspar prt-insulin aspart 0 unit SUBCUT BID 05/30/21 05/30/21 05/30/21 100 unit/mL (70-30) subcutaneous 40 units soln (Novolog Mix 70-30 U-100 Insuln) insulin aspart U-100 100 unit/mL 1 sliding scale dose SUBCUT 05/30/21 05/30/21 Unknown subcutaneous cartridge (Novolog USEASDIRECTD PenFill U-100 Insulin aspart) lisinopril 20 mg tablet 20 mg PO QAM 05/30/21 05/30/21 05/30/21 rosuvastatin 10 mg tablet 10 mg PO QAM 05/30/21 05/30/21 05/30/21 NPO Date Last Intake of Fluids: 05/30/21 Time Last Intake of Fluids: 06:00 Last Intake of Fluids Comment: 2 sips of soda Date Last Intake of Solids: 05/30/21 Time Last Intake of Solids: 06:00 Last Intake of Solids Comment: caramel candy Past Medical History Medical History (Updated 05/30/21 @ 14:12 by Ankush Miranda MD) Diabetes mellitus Hypertension Exercise / Class Metabolic Activity III < 4 Walking/Shop/Light housework Past Anesthesia History No Hx of Anesthesia Complications and No Family Hx of Anesthesia Complications History of PONV No Hx of PONV and No Hx of Motion Sickness Social History Smoking Status: Never smoker Do You Dip or Chew Tobacco: No Hx Alcohol Use: Yes Hx Substance Use: No Physical Exam Vital Signs Last Vital Signs Temp 37.3 C 05/30/21 09:29 Pulse 114 H 05/30/21 13:33 Resp 20 05/30/21 13:33 BP 139/87 05/30/21 13:33 Pulse Ox 100 05/30/21 13:33 Testing Laboratory Results 05/30/21 10:00 05/30/21 10:00 Urine Color Yellow 05/30/21 10:20 Urine Appearance Clear (Clear) 05/30/21 10:20 Urine pH 6.5 (4.5-7.5) 05/30/21 10:20 Ur Specific [place] 1.012 (1.000-1.030) 05/30/21 10:20 Urine Protein 3+ (Negative) H 05/30/21 10:20 Urine Glucose (UA) Trace (Negative) H 05/30/21 10:20 Urine Ketones Negative (Negative) 05/30/21 10:20 Urine Nitrite Negative (Negative) 05/30/21 10:20 Ur Leukocyte Esterase Negative (Negative) 05/30/21 10:20 Urine WBC (Auto) 1-5 /hpf (0-5) 05/30/21 10:20 Urine RBC (Auto) 0-4 /hpf (0-4) 05/30/21 10:20 U Hyaline Cast (Auto) 1-5 /lpf (0-5) 05/30/21 10:20 U Epithel Cells (Auto) 10-20 /lpf (0-5) H 05/30/21 10:20 Urine Bacteria (Auto) Negative (Negative) 05/30/21 10:20 05/30/21 13:38 POC Glucose 81 05/30/21 10:20 POC Ur Test NEG
--- NOTE | 2021-05-30 15:03 | Post Operative Brief Note ---
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
[2021-05-30] MEDS ORDERED: SUGAMMADEX SODIUM 200 MG/2 ML VIAL IV ONE (15:08)
[2021-05-30] MEDS ORDERED: SUCCINYLCHOLINE 100MG/5ML SYR IV ONE (15:28)
--- NOTE | 2021-05-30 15:32 | Operative Report (OR) ---
DATE OF PROCEDURE: 05/30/2021 PREOPERATIVE DIAGNOSIS: Acute appendicitis. POSTOPERATIVE DIAGNOSIS: Acute appendicitis. OPERATION: Laparoscopic appendectomy. SURGEON: Eddi Velez MD. ANESTHESIA: General. ESTIMATED BLOOD LOSS: About 10 mL. FINDINGS: Acute appendicitis. COMPLICATIONS: None. INDICATIONS FOR THE PROCEDURE: This is a 25-year-old gentleman who presented to ED with a 1-day hist ory of acute right lower quadrant pain. The patient had a CT scan diagnosis of acute appendicitis. I recommended to do laparoscopic appendectomy, possible open. I did talk to the patient about the be nefit, risk, alternate procedure. I indicated the risks may include, but not limited to, such as ble eding, infection, abscess, injury to other organs, pain, scar, bowel obstruction. The patient unders tands. He signed informed consent and I answered all questions. DETAILS OF PROCEDURE: After we identified the patient and verified the procedure, we brought the pat ient to the OR, put the patient in the supine position on the OR table. The patient received SCD on bilateral legs to prevent DVT. Also, patient received 2 grams of Ancef IV for prophylactic antibioti c and the patient received general anesthesia without difficulty. The abdomen was prepped and draped in routine sterile fashion. After timeout, I injected the local anesthesia by using 1% lidocaine mi xed with 0.5% Marcaine just above the umbilicus. Then, I made a small incision just above the umbili cus, opened fascia, opened peritoneum. Under direct vision, put a Aniya trocar in, connected to CO2 to create pneumoperitoneum, flow rate at 6 liters per minute, pressure not more than 14 mmHg. Once we got a nice pneumoperitoneum, we put a camera in, looked around the abdomen. It showed normal finding on the small bowel and large bowel; however, the appendix shows enlarged with inflammation c onfirming the diagnosis of acute appendicitis. Once we confirmed the diagnosis, we put another two 5 mm trocars on the left lower quadrant area. We used the grasper to hold the appendix and used the H armonic to take down the appendiceal; rechecked, no active bleeding. Then, I chose a 45 mm Endo-VICTOR HUGO stapler for transection on the base of the appendix. Rechecked the staple line, intact, no leak, no a ctive bleeding. Then, we removed the appendix through the catch bag. Then, we reinserted the Aniya trocar in, connected to CO2 to create pneumoperitoneum, again looked a round the abdomen, no active bleeding, no leak on the staple line. Then, we removed all trocars unde r direct vision. No active bleeding from the trocar site. Pneumoperitoneum was released, then I edmundo sed the umbilical incision fascial layer by using 0 Vicryl [id number] x2, closed subcutaneous la chiara by using 2-0 Vicryl interruptedly, closed skin by using 4-0 Vicryl continuous running and then we closed another two 5 mm trocar site of skin only by using 4-0 Vicryl. Then, we put the dressing on. The patient tolerated the procedure well. All instrument, needle and sponge counts were correct x___ _ at the end of the case. The specimen was sent to pathology. After the procedure, I did talk to th e patient about the OR finding and the procedure we did, patient understands. Job ID: [id number]
[2021-05-30] MEDS: fentaNYL citrate 100 MCG/2 ML VIAL IV PRN ×2 (15:34→15:48)
--- NOTE | 2021-05-30 16:00 | Anesthesiology Progress Note ---
Date of Service May 30, 2021 Anesthesia Post Procedure Vital Signs Vital Signs: Temp Pulse Pulse Pulse Resp BP BP 05/30/21 15:50 96 H 18 131/85 05/30/21 15:40 96 H 14 132/84 05/30/21 15:30 97 H 21 103/59 L 05/30/21 15:20 79 12 83/60 L 05/30/21 15:14 36.2 C L 85 16 101/52 L 05/30/21 14:17 37.7 C H 118 H 20 157/116 H 05/30/21 13:33 114 H 20 139/87 05/30/21 13:00 116 H 20 139/87 05/30/21 12:00 116 H 20 146/82 H 05/30/21 10:05 16 159/93 H 05/30/21 09:29 37.3 C 135 H 20 140/84 Pulse Ox 05/30/21 15:50 99 05/30/21 15:40 99 05/30/21 15:30 100 05/30/21 15:20 100 05/30/21 15:14 100 05/30/21 14:17 98 05/30/21 13:33 100 05/30/21 13:00 99 05/30/21 12:00 96 05/30/21 10:05 99 05/30/21 09:29 99 Pain Intensity Right Lower Abdomen: Pain Intensity: 5 Transfer of Care Handoff Completed per policy Notes Mental Status: alert / awake / arousable and participated in evaluation Patient Amnestic to Procedure: Yes Nausea / Vomiting: adequately controlled Pain: adequately controlled Airway Patency, RR, SpO2: stable & adequate BP & HR: stable & adequate Hydration State: stable & adequate Anesthetic Complications: no major complications apparent and Pt Satisfied with anesthetic care
[2021-05-30] MEDS ORDERED: ACETAMINOPHEN 325 MG TAB PO PRN (17:25)
[2021-05-30] MEDS ORDERED: HYDROmorphone INJ 0.5 MG/0.5 ML SYR IV PRN (17:25)
[2021-05-30] MEDS: LACTATED RINGER'S 1,000 ML IV SCH (17:39)
[2021-05-30] MEDS: oxyCODONE/ACETAMINOPHEN 5mg/325mg TAB PO PRN ×2 (17:51→23:00)
[2021-05-30] MEDS ORDERED: diphenhydrAMINE Capsule 25 MG CAP PO ONE (18:00)
[2021-05-30] MEDS ORDERED: INSULIN 70% ASPART PROTAMINE/30% ASPART SQ SCH (19:15)
[2021-05-30] MEDS ORDERED: PHARMACY GLYCEMIC MGMT CONSULT PRN (19:54)
[2021-05-30] MEDS ORDERED: COUGH DROP (SUGAR FREE) LOZ 24 LOZ/1 BOX BUCCAL ONE (21:03)
[2021-05-30] MEDS ORDERED: DEXTROSE 50% 50 ML SYRINGE IV PRN (21:45)
[2021-05-30] MEDS ORDERED: GLUCOSE 40% GEL 15 GM TUBE PO PRN (21:45)
[2021-05-30] MEDS ORDERED: CARBOHYDRATES FOR HYPOGLYCEMIA PO PRN (21:45)
[2021-05-30] MEDS ORDERED: GLUCOSE 10 TABS/TUBE PO PRN (21:45)
[2021-05-30] MEDS ORDERED: GLUCAGON FOR INJ 1 MG VIAL IM PRN (21:45)
[2021-05-30] MEDS: INSULIN ASPART 100 UNITS/ML 3 ML PEN SC SCH (23:36)
[2021-05-31] MEDS: INSULIN ASPART 100 UNITS/ML 3 ML PEN SC SCH ×3 (03:34→13:05)
[2021-05-31] MEDS: oxyCODONE/ACETAMINOPHEN 5mg/325mg TAB PO PRN ×3 (04:27→13:04)
[2021-05-31] MEDS: LACTATED RINGER'S 1,000 ML IV SCH (05:16)
[2021-05-31 06:27] LABS: Basophils # (auto) 0.01 K/uL (0-0.2); Basophils % (auto) 0.1 %; Hematocrit (blood only) 37.2 % (37-47); Hemoglobin 13.1 g/dL (12.0-16.0); Immature Granulocytes # (auto) 0.05 K/uL (0.00-0.02); Immature Granulocytes % (auto) 0.3 %; Lymphocytes # (auto) 1.11 K/uL (1.2-3.4); Lymphocytes % (auto) 6.1 %; Mean Corpuscular Hemoglobin 30.7 pg (25-34); Mean Corpuscular Hgb Conc 35.2 g/dL (32-36); Mean Corpuscular Volume 87.1 fL (80-100); Mean Platelet Volume 9.8 fL (7.4-10.4); Monocytes # (auto) 0.78 K/uL (0.11-0.59); Monocytes % (auto) 4.3 %; Neutrophils # (auto) 16.13 K/uL (1.4-6.5); Neutrophils % (auto) 89.2 %; Platelet Count 318 K/uL (130-400); RDW Coefficient of Variation 12.1 % (11.5-14.5); RDW Standard Deviation 38.6 fL (36.4-46.3); Red Blood Count 4.27 M/uL (4.2-5.4); White Blood Count 18.08 K/uL (4.8-10.8)
[2021-05-31] MEDS ORDERED: INSULIN 70% ASPART PROTAMINE/30% ASPART SQ SCH ×2 (07:30→18:45)
[2021-05-31] MEDS ORDERED: INSULIN HUMAN NPH SC SCH ×2 (08:35→16:30)
[2021-05-31 09:00] LABS: Estimated Average Glucose 235 mg/dl; Hemoglobin A1C 9.8 % (4.5-5.6)
[2021-05-31] MEDS ORDERED: ROSUVASTATIN CALCIUM 10 MG TAB PO SCH (09:00)
[2021-05-31] MEDS ORDERED: amLODIPine BESYLATE 5 MG TAB PO SCH (09:00)
[2021-05-31] MEDS ORDERED: lisinopril 20 MG TAB PO SCH (09:00)
--- NOTE | 2021-05-31 10:40 | Discharge Summary ---
Date of Service May 31, 2021 Admission HPI Per Admitting Provider Patient is a 25-year-old female who presents the ER for right lower quadrant abdominal pain. She identifies as a he. Is on testosterone. Has not had a menstrual period for several years. Denies any dysuria urgency or frequency. Pain is locally in the right lower quadrant worse with palpation. Admits to nausea. Did have one episode of vomiting. 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 No cough or runny nose or loss of taste or smell. No other exacerbating or remitting factors. No vaginal bleeding or vaginal discharge. I ( Eddi Velez MD ) got a call for consult appendicitis, I reviewed pt's H/P, labs, CT scan with pt, ROS: See above HPI for pertinent positives & negatives. A total of 10 systems reviewed and were otherwise negative. Principal Diagnosis Acute appendicitis Discharge Exam Constitutional WD/WN, vitals as above Respiratory normal respiratory effort; no respiratory distress, no labored breathing and no retractions Gastrointestinal (Abdomen) Inspection/Auscultation: + abdomen distended (mild) and + abdominal surgical incision (covered with dry intact dressings) Percussion/Palpation: + abdomen tender (at incision sites) and abdomen soft; no guarding and abdomen not rigid Skin no rashes, warm and dry Psychiatric A+Ox3, euthymic affect Discharge Data Allergies Allergy/AdvReac Type Severity Reaction Status Date / Time latex Allergy Mild . Verified 05/30/21 10:21 Consultations 05/30/21 11:36 ED Decision to Admit Stat Procedures Performed Operation Date: 05/30/21 08:15 Actual Procedures p Laparoscopic Appendectomy(Not Applicable) - Eddi Velez MD Ordered Studies 05/30/21 10:05 CT abd pelvis IV con only Stat Hospital Course (1) Acute appendicitis: Patient was taken to operating room for laparoscopic appendectomy by Dr. Velez. Patient found to have acute appendicitis without perforation or abscess. Transferred to medical/surgical floor for postop care. Diet advanced to clear liquids, IV Dilaudid and po Percocet prn pain, IV Cefoxitin for postop antibiotic, antiemetics, activity as tolerated. POD # 1 afebrile, vitals stable, leukcytosis improved but still elevated at 18K. Postop pain controlled with Percocet. Mild abdominal bloating but passing gas. Ambulating and urinating without difficulty. Patient was discharged home on POD # 1 in stable condition. Total Time Total Time Spent Total Time Spent (In Minutes): 20 Total Time Includes: Examination of the Patient, Discharge Planning and Medication Reconciliation Discharge Plan Discharge Items Patient Disposition: Home - Self-Care Reason For Visit: ADOMINAL PAIN, VOMITTING Discharge Diagnosis: acute appendicitis Activity: Per Instructions section Non-emergency contact: Surgeon Call non-emergency contact if: you have any medication questions, your pain is not controlled, your pain is worsening, your pain is concerning for you, you have a fever, your temperature is above 101, your wound has increased redness, your wound has increased drainage and your wound pain has increased Follow-up/Referrals: Claudia Julian MD [Primary Care Provider] - Diet: Regular Addtl Attending Provider Instructions: Post-Surgical ~Discharge Instructions Activity Recommendations: - lifting limitation: (25 pounds for 4 weeks), - exercise/sex/sports limit: (nonstrenuous for 2 weeks), - driving or machine use limit: (none for 1 week or until pain free and no longer taking narcotic pain medication), - Shower/bathe limit: (may shower beginning ) Diet: - Resume previous diet SPECIAL CARE INSTRUCTIONS: - May shower on , sponge bath and wash hair in meantime. On , remove outer dressings and shower.. Let water run over area and pat dry. - Leave steri strips on for one week and then remove. They may fall off on their own that is okay. - Call the surgeon's office with any questions or concerns - - (ex. temperature higher than 101 degrees F, excessive bleeding or pain). MEDICATIONS: - Resume previous medications unless instructed otherwise by your surgeon. - May alternate extra strength Tylenol and Ibuprofen as needed for mild to moderate pain -650 mg of Tylenol very 6 hours as needed - Ibuprofen 600 mg every 6 hours as needed (take with food) - Percocet 1 every 4 hours, as needed for moderate to severe pain - Recommend daily stool softener (Colace) while taking narcotic pain medication to prevent constipation. FOLLOW UP VISIT: - If not already scheduled, please call the office to schedule a two week follow-up appointment. Office number Pending Studies at Discharge: Yes Stand-Alone Forms: My [facility] [employer], Opioid Pain Management, Work/School Release, Smoking Cessation Medications and DC Order Prescriptions: New oxycodone-acetaminophen [Percocet] 5-325 mg tablet 1 tab PO Q4H PRN (Reason: pain) Qty: 10 RF: 0 Continued lisinopril 20 mg tablet 20 mg PO QAM RF: 0 amlodipine 5 mg tablet 5 mg PO QAM RF: 0 diphenhydramine HCl [Benadryl Allergy] 25 mg Tablet 25 mg PO ONCE RF: 0 insulin aspart U-100 [Novolog PenFill U-100 Insulin] 100 unit/mL Cartridge 1 sliding scale dose SUBCUT USEASDIRECTD RF: 0 insulin asp prt-insulin aspart [Novolog Mix 70-30 U-100 Insuln] 100 unit/mL (70-30) solution 0 unit SUBCUT BID RF: 0 rosuvastatin 10 mg tablet 10 mg PO QAM RF: 0 Discharge Orders: Discharge Order (Routine); Ordered 05/31/21 Ordered By: Jane Mcmanus/Other Patient Handouts: A1C Admission Data Admit Date/Time: 05/30/21 15:07 Attending Provider: Eddi Velez Admit Provider: Eddi Velez Primary Care Provider: Claudia Julian Other Providers: Eddi Velez Other Interventions: Discharge Summary Assessment (RN) Last Done: 05/31/21 11:30
--- NOTE | 2021-05-31 12:45 | Pharmacy Report ---
Pharmacy Glycemic Short Note 2 - Date of Service May 31, 2021 - Glycemic Short BSG Results (Last 24 hours): 05/30/21 05/30/21 05/30/21 13:38 15:19 17:38 POC Glucose 81 101 H 130 H 05/30/21 05/30/21 05/31/21 19:41 23:32 03:32 POC Glucose 248 H 163 H 101 H 05/31/21 05/31/21 08:19 12:08 POC Glucose 199 H 110 H OUTPATIENT ANTIDIABETIC REGIMEN: * Novolog Mix 70/30 - 40 units SC AM + 28 units SC PM * Novolog 1 unit SC for every 10 mg/dL over 140 mg/dL * HbA1c = 9.8% (05/31/21) ASSESSMENT: * 25 yo admitted secondary to appendicitis. Now POD #1 s/p laparoscopic appendectomy. Pharmacy has been consulted to assist with inpatient glycemic management. * BSGs yesterday were: [phone] mg/dL. * Received 40 units of Novolog Mix prior to admission and 28 units of Novolog Mix at dinner. 2 units of Novolog were given at bedtime. * Fasting BSG was 199 mg/dL this AM. * Transitioned patient to NPH while inpatient. Gave 30 units SC this AM x 1. * Added Novolog with very tight coverage. * BSG trended down to 110 mg/dL at lunch. * Loosened both CF and CR. PLAN FOR INPATIENT GLYCEMIC CONTROL: * Basal insulin * NPH 30 units SC AM * NPH 15 units SC PM * Bolus insulin * NovoLog per scale ACHS or Q6hrs while NPO * Goal Range: Low 110 mg/dL - High 140 mg/dL * Correction Factor: 25 mg/dL/unit * Nutritional / Prandial insulin per carb ratio of 1 unit per 8 grams CHO consumed PLAN FOR DISCHARGE: * HbA1c was 9.8% today which is well above goal for this patient. * Recommend endocrinology appointment be scheduled prior to discharge.
== END 2021-05-31 15:51 | disposition home or self-care (01) ==
LOC: ED 09:10 → ASU 13:41 → 3E 13:41
DX: K35.80 Unspecified acute appendicitis; Z91.040 Latex allergy status; Z79.899 Other long term (current) drug therapy